=== PATIENT | male | born 1955 | race Caucasian/White ===

== ENCOUNTER 2018-07-22 11:59 | Outpatient (CLI) | payer BC ==
--- NOTE | 2018-07-22 12:51 | Diagnostic Imaging Report ---
Indication: Cough Technique: 2 views of the chest Comparison: None Findings: Lungs and pleural spaces are clear. The heart size is normal. There is evidence of prior CABG. Impression: No acute process
== END 2018-07-22 13:59 | disposition home or self-care (01) ==
LOC: RAD 11:59
DX: R05 Cough (principal); Z95.1 Presence of aortocoronary bypass graft; K46.9 Unspecified abdominal hernia without obstruction or gangrene
CPT/HCPCS: 71046